=== PATIENT | male | born 1995 | race Caucasian/White ===

== ENCOUNTER 2017-03-30 23:04 | Emergency (ER) | payer OTHER ==
[~2017-03-30] VITALS: Ht 170.2 cm; Wt 70.3 kg
[~2017-03-30 23:04] MED LIST: AMOXICILLIN 50500 MG PO; CLEOCIN HCL150 MG PO; HYDROCODONE-AP1 EAC6 PO; HYDROCODONE-APA1 TA1 PO; KEFLEX500 MG PO; LIDOCAINE VISC100 M1 SWISH&SPIT; NAPROSYN500 MG PO; NOHOMEMEDICATIONS; NORCO 5-325 TA1 EACH PO; PENICILLIN V P500 MG PO; TRAMADOL 50 MG50 MG PO
[2017-03-30 23:08] VITALS: BP 152/91
[2017-03-30] MEDS ORDERED: IBUPROFEN 800800 M1 (23:11)
[2017-03-30] MEDS ORDERED: AMOXICILLIN 50500 MG PO (23:21)
[2017-03-30] MEDS ORDERED: NORCO 5-325 TA1 EACH PO (23:21)
[2017-03-30] MEDS ORDERED: LIDOCAINE VISC100 ML PO (23:21)
== END 2017-03-30 23:34 | disposition home or self-care (01) ==
LOC: M.ERS 23:04
DX: K08.89 Other specified disorders of teeth and supporting structures (principal)

== ENCOUNTER 2018-07-26 02:21 | Emergency (ER) | payer OTHER ==
[~2018-07-26] VITALS: Ht 172.7 cm; Wt 72.6 kg
[~2018-07-26 02:21] MED LIST changes: +IBUPROFEN 800800 M1; +LIDOCAINE VISC100 ML PO
[2018-07-26 02:25] VITALS: BP 138/79
[2018-07-26] MEDS ORDERED: NOHOMEMEDICATIONS (02:29)
[2018-07-26] MEDS ORDERED: PENICILLIN VK250 MG PO (02:34)
[2018-07-26] MEDS ORDERED: TRAMADOL 50 MG50 MG PO (02:34)
== END 2018-07-26 02:45 | disposition home or self-care (01) ==
LOC: M.ERS 02:21
DX: K08.89 Other specified disorders of teeth and supporting structures (principal); F17.200 Nicotine dependence, unspecified, uncomplicated